=== PATIENT | male | born 1995 | race Caucasian/White ===

== ENCOUNTER 2024-04-30 12:02 | Emergency (ER) | payer OTHER, SELFPAY ==
[2024-04-30 12:28] VITALS: BP 118/85
--- NOTE | 2024-04-30 12:53 | ED.GENMED ---
History of Present Illness
General
Chief Complaint: Skin Surface Trauma
Source: patient
Time Seen by Provider: 04/30/24 12:45
History of Present Illness
History of Present Illness:
28-year-old male presenting to the emergency department for evaluation of left middle finger laceration that occurred while using a small chisel to put a clock device in the back of a piece of wood when the chisel accidentally went into the left
middle finger. Patient noted difficulty with controlling the bleeding which is why he presented to the ER. No other injuries were sustained. Patient is left-hand dominant. Tetanus is up-to-date.
Past History
Past History
ED Past Medical History: None
ED Past Surgical History: Orthopedic
Social History
Tobacco: Non-smoker
Alcohol: Occasional
Drug: None
Personal: Single
Living: with family
Review of Systems
Review of Systems
All Other Systems: ROS reviewed and negative except as documented in HPI and ROS
Phy Exam
Physical Exam
Physical Exam:
GENERAL: Alert , in no apparent distress
EYE: conjunctiva clear
Head: Normocephalic atraumatic
NECK: Supple,
ENT: mmm.
LUNGS: no acute respiratory distress
NEUROLOGICAL: Alert and oriented
SKIN: Warm and dry, 9 mm superficial laceration to the palmar surface of the distal phalanx left middle finger. Wound edges are approximated but there is continuous oozing from the laceration site
MUSCULOSKELETAL: well perfused. Sensation grossly intact to light touch. Patient has full range of motion of all digits.
PSYCH: Normal and appropriate interaction.
Scores
Heart Failure Risk
Heart Failure Risk Score: Not Applicable
Heart Score for Chest Pain Patients
STEMI patient?: Not applicable
Withdrawal Assessment of Alcohol
Withdrawal Assessment Completed?: Not applicable
Course
Vital Signs
Initial and Last Documented VS:
Initial Vital Signs
Temp Pulse Resp BP Pulse Ox
97.9 F 77 16 118/85 98
04/30/24 12:28 04/30/24 12:28 04/30/24 12:28 04/30/24 12:28 04/30/24 12:28
Last Documented Vital Signs
Temp Pulse Resp BP Pulse Ox
97.9 F 77 16 118/85 98
04/30/24 12:28 04/30/24 12:28 04/30/24 12:28 04/30/24 12:28 04/30/24 12:28
MDM/Problems Addressed
Differential Diagnosis Includes:
Superficial laceration. There is no concern for tendon injury or nerve laceration
MDM/Problems Addressed:
28-year-old male presenting to the ER for evaluation of left middle finger laceration. Laceration is quite superficial but there is continuous oozing. Wound edges already approximated. Discussed risk versus benefit of Dermabond, Gelfoam,
laceration repair. Patient ultimately opted for Gelfoam. Discussed wound care and return precautions. Otherwise stable for discharge home.
*Pulse Oximetry
Patient hypoxic: no
*Critical Care Note
Total Time (30-74mins, 75-104mins- exclusive of procedures): Not Applicable
ED Attending Note
-
Portions of this chart may have been created with voice recognition software.� Occasional wrong word or��sound alike� substitutions may have occurred due to the inherent limitations of voice recognition software.
Discharge Plan
Departure
Patient Disposition: Home (Routine Discharge)
Date of Disposition: 04/30/24
Time of Disposition: 12:53
Patient with high blood pressure during this ER visit?: No
Discharge Problem:
Laceration of left middle finger
Instructions: Wound Care (DC)
Prescriptions:
No Action
levofloxacin [Levaquin] 500 MG tablet
500 mg PO DAILY Qty: 7 0RF
prednisone 50 MG tablet
50 mg PO DAILY Qty: 4 0RF
famotidine [Pepcid] 40 MG tablet
40 mg PO DAILY Qty: 4 0RF
Interventions
Interventions:
*Risk Screen - Suicide Last Done: 04/30/24 12:28
*Neglect/Abuse Screening Last Done: 04/30/24 12:28
Discharge Date and Time
Print Language: [id number]
== END 2024-04-30 13:22 | disposition home or self-care (01) ==
LOC: EMR 12:02
PROVIDERS: EMERGENCY PHYSICIAN Emergency Medicine; FAMILY PHYSICIAN Physician Assistant Medical
DX: S61.213A Laceration without foreign body of left middle finger without damage to nail, initial encounter (principal); W27.8XXA Contact with other nonpowered hand tool, initial encounter
CPT/HCPCS: 99282